=== PATIENT | female | born 1945 | race Caucasian/White ===

== ENCOUNTER 2022-11-02 07:52 | Day surgery (SDC) | payer MEDICARE, BC ==
[~2022-11-02 07:52] MED LIST: Apraclonidine 0.5% Ophth Soln 5 ML Bot EYELF ONE; Balanced Salt Solution Ophth Irrig 500 ML Bottle IOCULAR ONE; Chondroitin Sulfate/Hyaluronate Sodium Ophth Inj 0.75 ML Syringe EYELF ONE; Dexamethasone/Neomycin/Polymyxin B Ophth Oint 3.5 GM Tube EYELF ONE; Diclofenac Sodium 0.1% Ophth Soln 5 ML Bottle EYELF ONE; Lidocaine 1% 30 ML SDV ONE; Povidone-Iodine 5% Sterile Ophth Soln 30 ML Bottle EYELF ONE; Proparacaine 0.5% Ophth Soln 15 ML Bottle EYELF ONE; Vancomycin 500 MG SDV EYELF ONE
[2022-11-02] MEDS ORDERED: Midazolam 1 MG/ML 2 ML SDV IV ONE (07:53)
[2022-11-02] MEDS ORDERED: Sodium Chloride 0.9% 10 ML Syringe IV ONE (07:53)
[2022-11-02] MEDS ORDERED: Dexamethasone 4 MG/ML SDV IV ONE (07:53)
[2022-11-02] MEDS ORDERED: Acetaminophen/Codeine 300-30 MG Tab PO PRN (08:00)
[2022-11-02] MEDS ORDERED: Cataract Ophth Solution EYELF ONE (08:00)
[2022-11-02] MEDS ORDERED: Sodium Chloride 0.9% 10 ML Syringe FLUSH PRN (08:00)
[2022-11-02] MEDS ORDERED: Acetaminophen 325 MG Tab PO PRN (08:00)
[2022-11-02] MEDS ORDERED: Phenylephrine 10% Ophth Soln 5 ML Bot EYELF PRN (08:00)
[2022-11-02] MEDS ORDERED: Ondansetron 4 MG/2 ML SDV IVPUSH PRN (08:00)
[2022-11-02] MEDS ORDERED: Tropicamide 1% Ophth Soln 15 ML Bottle EYELF ONE (08:00)
[2022-11-02] MEDS ORDERED: Timolol Maleate 0.5% Ophth Soln 5 ML Bottle EYELF ONE (08:00)
[2022-11-02] MEDS ORDERED: Povidone-Iodine 5% Sterile Ophth Soln 30 ML Bottle EYELF ONE ×2 (08:00→09:03)
[2022-11-02] MEDS ORDERED: Proparacaine 0.5% Ophth Soln 15 ML Bottle EYELF ONE ×2 (08:00→09:03)
[2022-11-02] MEDS ORDERED: Moxifloxacin 0.5% Ophth Soln 3 ML Bottle EYELF ONE (08:00)
[2022-11-02] MEDS ORDERED: Apraclonidine 0.5% Ophth Soln 5 ML Bot EYELF ONE (09:03)
[2022-11-02] MEDS ORDERED: Lidocaine 1% 30 ML SDV ONE (09:04)
[2022-11-02] MEDS ORDERED: Chondroitin Sulfate/Hyaluronate Sodium Ophth Inj 0.75 ML Syringe EYELF ONE (09:04)
[2022-11-02] MEDS ORDERED: Vancomycin 500 MG SDV EYELF ONE (09:04)
[2022-11-02] MEDS ORDERED: Diclofenac Sodium 0.1% Ophth Soln 5 ML Bottle EYELF ONE (09:04)
[2022-11-02] MEDS ORDERED: Balanced Salt Solution Ophth Irrig 500 ML Bottle IOCULAR ONE (09:04)
[2022-11-02] MEDS ORDERED: Dexamethasone/Neomycin/Polymyxin B Ophth Oint 3.5 GM Tube EYELF ONE (09:04)
== END 2022-11-02 10:04 | disposition home or self-care (01) ==
LOC: DL.SDS 07:52
PROVIDERS: ATTEND Ophthalmology
DX: H25.812 Combined forms of age-related cataract, left eye (principal); E78.5 Hyperlipidemia, unspecified; E03.9 Hypothyroidism, unspecified; M19.90 Unspecified osteoarthritis, unspecified site; E55.9 Vitamin D deficiency, unspecified; I27.20 Pulmonary hypertension, unspecified; R31.29 Other microscopic hematuria; M85.80 Other specified disorders of bone density and structure, unspecified site; Z79.899 Other long term (current) drug therapy; Z98.890 Other specified postprocedural states; Z87.891 Personal history of nicotine dependence; Z86.711 Personal history of pulmonary embolism; Z79.890 Hormone replacement therapy
CPT/HCPCS: A9270-GY; J1100; J2250; J3370; J3490